=== PATIENT | male | born 1995 | race Caucasian/White ===

== ENCOUNTER 2021-11-29 08:02 | Outpatient (CLI) | payer BC, SELFPAY ==
--- NOTE | 2021-11-30 20:03 | WPDHOMESLEEP ---
Sleep Study - Home Unattended Date of Study: 11/29/21 Ordering Provider: Chelsie Gotti NP Interpreting Provider: Sumaya Bernstein, DO Home Sleep Study Type: Apnea Link Air Height: 1.78 m Weight: 90.718 kg Body Mass Index: 28.7 Neck Circumference (inches): 16 [place]: 8 Reason for Sleep Study Gasping for air throughout the night Sleep History The patient is a 26-year-old male with hypertension that had a sleep study ordered by his primary care for evaluation of sleep apnea. He frequently awakens from sleep short of breath. He denies awakening at night with heartburn, belching or cough. He occasionally snores loud enough that others complain. He rarely has trouble sleeping when he has a cold. He occasionally wakes up gasping for air throughout the night. He occasionally has breathing problems at night observed by himself or others. He occasionally sweats excessively at night. He occasionally has heart palpitations or irregular heartbeats during the night. He occasionally falls asleep during the day but never while driving. He denies cataplexy. He occasionally has trouble at school or work due to sleepiness. He frequently feels unable to move when waking up or falling asleep. He occasionally experiences vivid dreamlike scenes upon awakening or falling asleep. He occasionally feels afraid of going to sleep. He rarely has nightmares. He occasionally remembers his dreams. He frequently has thoughts racing through his mind. He denies feeling sad or depressed. He frequently has anxiety. He denies having muscular tension. He frequently notices parts of his body jerk. He frequently kicks during the night. He denies having crawling and aching feelings in his legs as well as leg pain during. He rarely grinds his teeth during sleep but never awakens with morning jaw pain. He is rarely bothered by pain during the day but never awakened by pain during the night. He rarely wakes up feeling stiff in the morning. He rarely wakes up with sore or achy muscles. He rarely wakes up with pain in the neck, spine and other joints. The patient goes to bed at 9:30 p.m. on weekdays and at midnight on the weekends. It takes him 15-30 minutes to fall asleep. He wakes up 3-8 times throughout the night to check the market. It takes him 15 minutes to fall back asleep. He wakes up at 6:30 a.m. on weekdays and 9:00 a.m. on the weekends. He typically gets 6-7 hours of sleep per night. He will stay in bed for 30 minutes after waking up in the morning. Currently lives with his girlfriend. He does not consume any caffeinated beverages within 2 hours of bedtime. He does not engage in physical exercise before bedtime. He denies reading and watching television before falling asleep. He will take naps in the afternoon or the evening but they are not refreshing. He drinks 1 cup of coffee per day. He denies tobacco, alcohol and recreational drug use. [facility] Past Medical History Medical History Acute appendicitis (~04/02/20) Anxiety Blood type O- BMI 29.0-29.9,adult BMI 30.0-30.9,adult COVID-19 (~04/02/20) Essential (primary) hypertension Fatigue Hypersomnia Insomnia Near syncope Sunburn of second degree Tonsillar hypertrophy Surgical History Surgical History History of laparoscopic appendectomy 04/03/2020 Family History Family History Mother Patient's mother is in good health Father Patient's father is in good health Grandparent Family history of malignant neoplasm of esophagus Social History Social History Smoking status: Never smoker Alcohol intake: current Alcohol use details: Weekends socially Substance use: never Medications Home Medications Medication Instructions Recor
[2021-11-30 20:16] VITALS: BMI 28.7
== END 2021-11-30 12:48 | disposition home or self-care (01) ==
PROVIDERS: PCP Family Medicine; Visit Provider Nurse Practitioner Family
DX: G47.10 Hypersomnia, unspecified (principal); R06.83 Snoring; G47.9 Sleep disorder, unspecified
CPT/HCPCS: 95806